=== PATIENT | female | born 1985 | race Caucasian/White ===

== ENCOUNTER 2016-10-12 06:20 | Day surgery (SDC) | payer OTHER ==
[~2016-10-12 06:20] MED LIST: AMBIEN5 M1 PO; AMITRIPTYLINE H25 MG; AMOXICILLIN500 MG PO; AMOXIL500 MG PO; BIO CLEANSE PO; CELEXA20 MG PO; CELEXA40 MG PO; COMPAZINE; COMPAZINE5 MG; DARVOCET-N 1001 EA PO; DEMEROL50 MG; DEMEROL50 MG PO; DICLOFENAC SODI75 MG PO; DULCOLAX10 MG/SUPP RC; EPINEPHRIN0.15 MG/0. IM; EPIPEN0.3 MG/0.3 IM; ESTRACE1 M1 PO; ESTRADIOL2 M1 PO; EXCEDRIN EXTRA1 EAC2 PO; EXCEDRIN MIGRA1 EAC3 PO; FLEXERIL10 MG PO; IRON1 TA1; KEFLEX500 MG PO; LEVAQUIN250 MG PO; LOMOTIL1 TAB PO; LUPRON IM; METHYLPREDNISOLO4 M1 PO; MOTRIN600 MG PO; NAPROSYN500 MG PO; NORCO 5/325 TAB1 TAB PO; NORETHINDRONE AC5 M1 PO; NUCYNTA50 MG PO; PEPCID20 MG PO; PERCOCET 5/3251 TAB PO; PREDNISONE20 MG PO; PRENATAL1 TAB; PROBIOTIC1 EA10 PO; REGLAN10 MG; REGLAN10 MG PO; SURFAK240 M1 PO; WELLBUTRIN XL150 M1 PO; ZITHROMAX250 MG; ZOFRAN ODT4 MG/UDTAB PO; ZOFRAN4 MG PO
[2016-10-12 07:01] LABS: HCT-HEMATOCRIT 40.5 % (34.0-49.0); HGB-HEMOGLOBIN 13.5 gm/dl (12.0-15.5); MCV (MEAN CELL VOLUME) 82.3 fl (82.0-96.0); RED CELL DISTRIBUTION WIDTH 13.3 % (12.4-16.4)
[2016-10-12 07:11] LABS: ANION GAP 11 mmol/L (0-20); BLOOD UREA NITROGEN 10 mg/dl (6-24); CALCIUM 9.5 mg/dl (8.5-10.5); CARBON DIOXIDE-VENOUS 27 mmol/L (22-32); CHLORIDE 105 mmol/l (96-110); GLUCOSE 99 mg/dL (70-110); SODIUM 139 mmol/L (135-145); eGFR VALUE FOR BLACK >90 mL/Min
== END 2016-10-12 09:45 ==
LOC: ENDOS 06:20 → SHSB 06:22 → ENDOS 08:31
PROVIDERS: Anesthesiology
PROC: 0DJD8ZZ Inspection of Lower Intestinal Tract, Via Natural or Artificial Opening Endoscopic (ICD-10-PCS; principal; 2016-10-12)
DX: K64.8 Other hemorrhoids (principal); K57.30 Diverticulosis of large intestine without perforation or abscess without bleeding; N80.9 Endometriosis, unspecified; Z90.49 Acquired absence of other specified parts of digestive tract; Z90.710 Acquired absence of both cervix and uterus; Z79.899 Other long term (current) drug therapy; Z88.8 Allergy status to other drugs, medicaments and biological substances